=== PATIENT | male | born 1955 | race Caucasian/White ===

== ENCOUNTER 2018-02-14 06:26 | Emergency (ER) | payer BC ==
[2018-02-14] MEDS ORDERED: ONDANSETRON HCL INJ/PF 4 MG/2 ML SDV ONE (06:51)
[2018-02-14] MEDS ORDERED: ONDANSETRON HCL INJ/PF 4 MG/2 ML SDV IV ONE (06:51)
[2018-02-14] MEDS ORDERED: NORMAL SALINE 1000 ML 1,000 ML IV ONE (06:52)
[2018-02-14] MEDS ORDERED: MORPHINE SULFATE 10 MG/ML INJ IV ONE (07:03)
[2018-02-14 07:08] LABS: ABSOLUTE BASOPHILS # (AUTO) 0.1 10^3/uL (0.0-0.2); ABSOLUTE MONOCYTES (AUTO) 0.4 10^3/uL (0.1-1.4); BASOPHILS % (AUTO) 0.6 % (0-2); EOSINOPHILS % (AUTO) 0.3 % (0-6); HEMATOCRIT 42.8 % (37.9-51.0); HEMOGLOBIN 14.8 g/dL (13.5-17.0); LYMPHOCYTES % (AUTO) 9.4 % (13-45); MEAN CORPUSCULAR HEMOGLOBIN 30.8 pg (27.0-33.4); MEAN CORPUSCULAR HGB CONC 34.6 g/dL (32.0-36.0); MEAN CORPUSCULAR VOLUME 89 fl (80-97); MONOCYTES % (AUTO) 3.9 % (3-13); PLATELET COUNT 280 10^3/uL (150-450); RED BLOOD COUNT 4.81 10^6/uL (4.35-5.55); SEGMENTED NEUTROPHILS % (AUTO) 85.8 % (42-78); TOTAL CELLS COUNTED % (AUTO) 100 %; WHITE BLOOD COUNT 10.4 10^3/uL (4.0-10.5)
[2018-02-14 07:18] LABS: APPEARANCE,URINE CLOUDY; BILIRUBIN,URINE NEGATIVE (NEGATIVE); COLOR,URINE YELLOW; GLUCOSE, URINE NEGATIVE (NEGATIVE); KETONES,URINE NEGATIVE (NEGATIVE); LEUKOCYTE ESTERASE,URINE TRACE (NEGATIVE); NITRITE,URINE NEGATIVE (NEGATIVE); PROTEIN,URINE 30 mg/dL (NEGATIVE); URINE SPECIFIC GRAVITY 1.024; UROBILINOGEN,URINE NEGATIVE mg/dL (<2.0)
--- NOTE | 2018-02-14 07:19 | ER Document Report ---
ED General - General Chief Complaint: Back Pain Stated Complaint: FLANK PAIN Time Seen by Provider: 02/14/18 07:02 Mode of Arrival: Ambulatory Information source: Patient Notes: Patient presents complaining of left flank pain for the past 4 days. Patient states he has had some dark urine. Patient denies any fever. Patient does have a history of previous kidney stone but it has been over 10 years since the last time he had a kidney stone. Patient does report nausea and vomiting times multiple episodes today. Patient was given pain medication prior to providers evaluation. Patient now states that pain is markedly improved. Patient complains of left-sided abdominal and left flank pain. TRAVEL OUTSIDE OF THE [place] IN LAST 30 DAYS: No - HPI Onset: Other - 4 days Onset/Duration: Worse Quality of pain: Sharp Pain Level: 4 Associated symptoms: Nausea, Vomiting, Other - Left flank pain. denies: Fever, Sweating Exacerbated by: denies: Denies Relieved by: Denies Similar symptoms previously: Yes - Kidney stones Recently seen / treated by doctor: No - Related Data Allergies/Adverse Reactions: No Known Allergies Allergy (Unverified 02/14/18 06:30) Past Medical History - General Information source: Patient - Social History Smoking Status: Never Smoker Frequency of alcohol use: Occasional Drug Abuse: None Occupation: [employer] Lives with: Spouse/Significant other Family History: Reviewed & Not Pertinent - Past Medical History Cardiac Medical History: Reports: Hx Hypertension Renal/ Medical History: Reports: Hx Benign Prostatic Hyperplasia, Hx Kidney Stones GI Medical History: Reports: Hx Gastroesophageal Reflux Disease Psychiatric Medical History: Reports: Hx Depression Review of Systems - Review of Systems Constitutional: No symptoms reported. denies: Fever, Recent illness EENT: No symptoms reported Cardiovascular: No symptoms reported. denies: Chest pain Respiratory: No symptoms reported Gastrointestinal: Abdominal pain, Nausea, Vomiting. denies: Diarrhea Genitourinary: Flank pain, Hematuria. denies: Dysuria Male Genitourinary: No symptoms reported Musculoskeletal: Back pain Skin: No symptoms reported Hematologic/Lymphatic: No symptoms reported Neurological/Psychological: No symptoms reported Physical Exam - Vital signs Vitals: Temp Pulse Resp BP Pulse Ox 97.5 F 83 18 119/82 100 02/14/18 06:32 02/14/18 06:32 02/14/18 06:32 02/14/18 06:32 02/14/18 06:32 - General General appearance: Appears well, Alert In distress: None - Respiratory Respiratory status: No respiratory distress Chest status: Nontender Breath sounds: Normal Chest palpation: Normal - Cardiovascular Rhythm: Regular Heart sounds: S1 appreciated, S2 appreciated Murmur: No - Abdominal Inspection: Normal Distension: No distension Bowel sounds: Normal Tenderness: Tender - mild L side abd Organomegaly: No organomegaly - Back Back: CVA tenderness - left - Extremities General upper extremity: Normal inspection, Normal ROM General lower extremity: Normal inspection, Normal ROM - Neurological Neuro grossly intact: Yes Cognition: Normal Klemme Coma Scale Eye Opening: Spontaneous Twyla Coma Scale Verbal: Oriented Twyla Coma Scale Motor: Obeys Commands Twyla Coma Scale Total: 15 - Psychological Associated symptoms: Normal affect, Normal mood - Skin Skin Temperature: Warm Skin Moisture: Dry Skin Color: Normal Course - Re-evaluation Re-evalutation: 02/14/18 08:30 Patient much more comfortable at this time. Patient's pain able to be managed. Patient with a 4 mm stone to the left ureter. Consulted with Dr. Madrid regarding patient presentation and diagnostic evaluation. Recommends placing patient on Cipro culturing the urine and encouraging outpatient follow-up with urology. No concern for sepsis at this time. Patient was given IV fluids for hydration as his laboratory tests reflect mild dehydration. - Vital Signs Vital signs: Temp Pulse Resp BP Pulse Ox 97.8 F 71 18 100/57 L 100 02/14/18 09:01 02/14/18 09:01 02/14/18 09:01 02/14/18 09:01 02/14/18 09:01 - Laboratory Result Diagrams: 02/14/18 06:45 02/14/18 06:45 Laboratory results interpreted by me: 02/14/18 02/14/18 02/14/18 06:45 06:45 06:45 Seg Neutrophils % 85.8 H Lymphocytes % 9.4 L Absolute Neutrophils 9.0 H Chloride 110 H BUN 25 H Creatinine 1.73 H Est GFR ( Amer) 49 L Est GFR (Non-Af Amer) 40 L Glucose 137 H Urine Protein 30 H Urine Blood LARGE H Ur Leukocyte Esterase TRACE H 02/14/18 08:31 Labs- Entire Visit 02/14/18 02/14/18 02/14/18 06:45 06:45 06:45 WBC 10.4 RBC 4.81 Hgb 14.8 Hct 42.8 MCV 89 MCH 30.8 MCHC 34.6 RDW 14.0 Plt Count 280 Seg Neutrophils % 85.8 H Lymphocytes % 9.4 L Monocytes % 3.9 Eosinophils % 0.3 Basophils % 0.6 Absolute Neutrophils 9.0 H Absolute Lymphocytes 1.0 Absolute Monocytes 0.4 Absolute Eosinophils 0.0 Absolute Basophils 0.1 Sodium 141.9 Potassium 4.5 Chloride 110 H Carbon Dioxide 23 Anion Gap 9 BUN 25 H Creatinine 1.73 H Est GFR ( Amer) 49 L Est GFR (Non-Af Amer) 40 L Glucose 137 H Calcium 9.6 Total Bilirubin 1.0 Direct Bilirubin 0.4 Neonat Total Bilirubin Not Reportable Neonat Direct Bilirubin Not Reportable Neonat Indirect Bili Not Reportable AST 20 ALT 30 Alkaline Phosphatase 82 Total Protein 7.0 Albumin 4.1 Urine Color YELLOW Urine Appearance CLOUDY Urine pH 5.0 Ur Specific [place] 1.024 Urine Protein 30 H Urine Glucose (UA) NEGATIVE Urine Ketones NEGATIVE Urine Blood LARGE H Urine Nitrite NEGATIVE Urine Bilirubin NEGATIVE Urine Urobilinogen NEGATIVE Ur Leukocyte Esterase TRACE H Urine WBC (Auto) 45 Urine RBC (Auto) >182 Squamous Epi Cells Auto 2 Urine Mucus (Auto) OCC Urine Ascorbic Acid NEGATIVE - Diagnostic Test Radiology reviewed: Reports reviewed Discharge - Discharge Clinical Impression: Left ureteral stone Condition: Stable Disposition: HOME, SELF-CARE Additional Instructions: Return immediately for any new or worsening symptoms Followup with your primary care provider, call tomorrow to make a followup appointment Follow-up with urology, call today to make a follow-up appointment Increase oral fluids and stay well-hydrated Urine culture is pending, we will call if you need any different treatment KIDNEY STONE: You are passing or have passed a kidney stone. These stones are usually due to increased calcium or uric acid concentrations in your urine. Stones within the kidney itself are not painful. The pain occurs as the stone leaves the kidney to pass down the long tube, called the ureter, leading to the bladder. If the stone is small, it will usually pass by itself. Most patients can pass the stone at home. You will usually receive medications for pain, nausea or vomiting, and sometimes a medication to assist in passing the kidney stone. However, if the pain is very severe or if vomiting prevents you from taking oral pain medications, you may need to return for further treatment. Drink three or four quarts of fluids per day. You will be given pain medication (if needed) and urine strainers. Strain all your urine to see if the stone passes. If your doctor has asked you to bring the stone in for analysis, return with the stone once it has passed. Return if pain or vomiting become severe, if you develop a high fever, if you are unable to pass your urine, or if other unusual symptoms occur. PAIN MEDICATION INJECTION: You have received an injection of a pain medication. You should experience significant pain relief within 45 minutes. This drug is a narcotic - - it will impair your judgement, slow your reaction time and make you sleepy ( as well as relieve your pain). Narcotics also can cause nausea. You should not drive, work with machinery, or perform any task requiring mental alertness until all effects of the medication are gone -- six to eight hours. Do not take any alcohol, or sedatives, and do not take any other medication without checking with your physician. ANTINAUSEA MEDICATION: You have been given a medication to suppress nausea and vomiting. This type of medication can be given as a shot, pill, or suppository. It will usually last for many hours. Pills and shots usually last six to eight hours, suppositories last about 12 hours. For the typical illness, only one or two doses of the medication may be necessary. Mild lightheadedness may occur. This type of medicine can cause drowsiness. Do not drive or operate dangerous machinery while under its influence. Do not mix with alcohol. See your doctor at once if you have muscle spasms or tightness, or uncontrollable motions (particularly of the neck, mouth, or jaw). Persistent vomiting or severe lightheadedness should also be evaluated by the physician. ORAL NARCOTIC MEDICATION: You have been given a prescription for pain control. This medication is a narcotic. It's best taken with food, as nausea can result if taken on an empty stomach. Don't operate machinery or drive within six hours of taking this medication. Do not combine this medicine with alcohol, or with any medication which can cause sedation (such as cold tablets or sleeping pills) unless you get permission from the physician. Narcotics tend to cause constipation. If possible, drink plenty of fluids and eat a diet high in fiber and fruits. Please be aware that prescription narcotics also have the potential for abuse. People become addicted to these medications because of the general sense of wellbeing that they induce. This feeling along with a significant reduction in tension, anxiety, and aggression provides a stimulating seductive quality to these drugs. Once your pain is under control, we encourage you to discard your unused narcotics. FLOMAX (tamsulosin): Flomax is a medicine that shrinks the prostate gland. It helps relieve symptoms of benign prostatic hypertrophy, such as frequent urination, weak stream, and inadequate emptying. It has been shown to dilate the ureter (tube leading from the kidney to the bladder) and help in passing kidney stones Flomax usually causes no side effects. You may notice slight tiredness and dizziness for a few days. Some patients develop nasal congestion. Rarely, impotence can occur. If the symptoms are bothersome and don't improve with continued use, call your doctor. Contact your doctor or return if you have fainting spells, severe weakness or dizziness, shortness of breath, or rash. FOLLOW-UP CARE: If you have been referred to a physician for follow-up care, call the physician s office for an appointment as you were instructed or within the next two days. If you experience worsening or a significant change in your symptoms, notify the physician immediately or return to the Emergency Department at any time for re-evaluation. Prescriptions: Ciprofloxacin HCl [Cipro 500 mg Tablet] 500 mg PO BID #20 tablet Ondansetron HCl [Zofran 4 mg Tablet] 1 tab PO Q6 PRN #8 tablet PRN Reason: Oxycodone HCl/Acetaminophen [Percocet 5-325 mg Tablet] 1 tab PO ASDIR PRN #15 tablet PRN Reason: Tamsulosin HCl [Flomax 0.4 mg Cap.sr] 0.4 mg PO DAILY #7 cap.sr.24h Referrals: RAJWINDER HUERTA MD [TAMAR LEROY] - Follow up tomorrow
[2018-02-14 07:24] LABS: ALANINE AMINOTRANSFERASE 30 U/L (21-72); ALBUMIN 4.1 g/dL (3.5-5.0); ALKALINE PHOSPHATASE 82 U/L (38-126); ANION GAP 9 (5-19); ASPARTATE AMINO TRANSFERASE 20 U/L (17-59); BILIRUBIN,DIRECT 0.4 mg/dL (0.0-0.4); BLOOD UREA NITROGEN 25 mg/dL (7-20); CALCIUM 9.6 mg/dL (8.4-10.2); CARBON DIOXIDE 23 mmol/L (22-30); CHLORIDE 110 mmol/L (98-107); GLUCOSE 137 mg/dL (75-110); POTASSIUM 4.5 mmol/L (3.6-5.0); SODIUM 141.9 mmol/L (137-145)
--- NOTE | 2018-02-14 07:50 | RADIOLOGY REPORT (SQ) ---
EXAM DESCRIPTION: CT ABDOMEN WITHOUT IV CONTRAST COMPLETED DATE/TME: 02/14/2018 07:18 CLINICAL HISTORY: left flank pain COMPARISON: None Available. TECHNIQUE: CT of the abdomen and pelvis without IV contrast. Evaluation of the solid organs and vasculature is suboptimal due to lack of IV contrast. DLP: 435.58 mGy-cm FINDINGS: Lung Bases: The visualized lung bases are clear. Bones: No destructive bone lesions identified. Age-indeterminate compression deformity L2 vertebral body with approximately 30% loss of anterior vertebral body height. Abdomen: Liver: The liver has normal size and density. Gallbladder: No calcified gallstones. Spleen, Pancreas, and Adrenal Glands: The spleen, pancreas, and adrenal glands are unremarkable. Kidneys: The right hydronephrosis. Mild left hydroureter and hydronephrosis with left perinephric fluid. There is a 0.4 cm obstructing calculus in the mid left ureter. Vasculature: The aorta and IVC have normal caliber and position. Stomach: The stomach and duodenum have normal course. Other: No free intraperitoneal air. No free fluid or lymphadenopathy. Pelvis: Bladder: Urinary bladder is unremarkable. Bowel: Scattered diverticula of the colon. No pericolic inflammatory change. No dilated loops of large or small bowel. Appendix: Normal appendix. Pelvis: Prostate is not enlarged. IMPRESSION: 1. There is a 0.4 cm obstructing calculus in the mid left ureter producing mild left hydroureter and hydronephrosis. 2. Diverticulosis without evidence of acute diverticulitis. This exam was performed according to our departmental dose-optimization program, which includes automated exposure control, adjustment of the mA and/or kV according to patient size and/or use of iterative reconstruction technique.
[2018-02-14] MEDS ORDERED: CIPROFLOXACIN HCL 500 MG TABLET PO ONE (08:29)
[2018-02-14] MEDS ORDERED: TAMSULOSIN HCL 0.4 MG CAP.SR.24H PO ONE (08:29)
[2018-02-14 09:02] VITALS: BP 100/57
== END 2018-02-14 09:05 | disposition home or self-care (01) ==
LOC: ER 06:26
DX: N20.1 Calculus of ureter (principal); M54.9 Dorsalgia, unspecified; R10.9 Unspecified abdominal pain; R39.198 Other difficulties with micturition; R11.2 Nausea with vomiting, unspecified; I10 Essential (primary) hypertension
CPT/HCPCS: 99284; 96361; 96374; 96375; 36415; 87086; 85025; 80053; 81001; 76380; J2270; J2405

== ENCOUNTER 2018-02-17 01:21 | Emergency (ER) | payer BC ==
[2018-02-17] MEDS ORDERED: OXYCODONE-ACETAMINOPHEN 5-325 MG TABLET PO ONE (04:05)
[2018-02-17] MEDS ORDERED: ONDANSETRON 4 MG TAB.RAPDIS PO ONE (04:05)
[2018-02-17] MEDS ORDERED: MORPHINE SULFATE IR 15 MG TABLET PO ONE (04:22)
[2018-02-17 06:43] LABS: ABSOLUTE BASOPHILS # (AUTO) 0.1 10^3/uL (0.0-0.2); ABSOLUTE LYMPHOCYTES (AUTO) 0.9 10^3/uL (0.5-4.7); ABSOLUTE MONOCYTES (AUTO) 0.8 10^3/uL (0.1-1.4); ABSOLUTE NEUT (AUTO) 9.8 10^3/uL (1.7-8.2); BASOPHILS % (AUTO) 0.5 % (0-2); EOSINOPHILS % (AUTO) 0.1 % (0-6); HEMATOCRIT 42.1 % (37.9-51.0); HEMOGLOBIN 14.6 g/dL (13.5-17.0); LYMPHOCYTES % (AUTO) 7.8 % (13-45); MEAN CORPUSCULAR HEMOGLOBIN 31.1 pg (27.0-33.4); MEAN CORPUSCULAR HGB CONC 34.8 g/dL (32.0-36.0); MEAN CORPUSCULAR VOLUME 89 fl (80-97); MONOCYTES % (AUTO) 6.9 % (3-13); PLATELET COUNT 265 10^3/uL (150-450); RED BLOOD COUNT 4.71 10^6/uL (4.35-5.55); RED CELL DISTRIBUTION WIDTH 13.6 % (11.5-14.0); SEGMENTED NEUTROPHILS % (AUTO) 84.7 % (42-78); TOTAL CELLS COUNTED % (AUTO) 100 %; WHITE BLOOD COUNT 11.6 10^3/uL (4.0-10.5)
[2018-02-17 07:19] LABS: APPEARANCE,URINE CLOUDY; BILIRUBIN,URINE NEGATIVE (NEGATIVE); CALCIUM OXALATE CRYSTALS,URINE RARE /HPF; COLOR,URINE AMBER; GLUCOSE, URINE NEGATIVE (NEGATIVE); KETONES,URINE TRACE mg/dL (NEGATIVE); LEUKOCYTE ESTERASE,URINE NEGATIVE (NEGATIVE); NITRITE,URINE NEGATIVE (NEGATIVE); PROTEIN,URINE 30 mg/dL (NEGATIVE); URINE SPECIFIC GRAVITY 1.029; UROBILINOGEN,URINE NEGATIVE mg/dL (<2.0)
[2018-02-17 07:21] LABS: ALANINE AMINOTRANSFERASE 26 U/L (21-72); ALBUMIN 3.9 g/dL (3.5-5.0); ANION GAP 9 (5-19); ASPARTATE AMINO TRANSFERASE 17 U/L (17-59); BILIRUBIN,DIRECT 0.5 mg/dL (0.0-0.4); BILIRUBIN,TOTAL 1.6 mg/dL (0.2-1.3); BLOOD UREA NITROGEN 21 mg/dL (7-20); CALCIUM 9.3 mg/dL (8.4-10.2); CARBON DIOXIDE 24 mmol/L (22-30); CHLORIDE 107 mmol/L (98-107); GLUCOSE 114 mg/dL (75-110); LIPASE 37.3 U/L (23-300); POTASSIUM 4.7 mmol/L (3.6-5.0); SODIUM 139.8 mmol/L (137-145); TOTAL PROTEIN 6.9 g/dL (6.3-8.2)
[2018-02-17] MEDS ORDERED: KETOROLAC TROMETHAMINE INJ/PF 30 MG/1 ML SDV IV ONE (07:39)
[2018-02-17] MEDS ORDERED: MORPHINE SULFATE 10 MG/ML INJ IV ONE ×2 (07:39→07:41)
[2018-02-17 07:44] LABS: ALKALINE PHOSPHATASE 75 U/L (38-126)
--- NOTE | 2018-02-17 08:45 | ER Document Report ---
ED GI/ - General Mode of Arrival: Ambulatory Information source: Patient TRAVEL OUTSIDE OF THE [place] IN LAST 30 DAYS: No <LISA JUAREZ - Last Filed: 02/17/18 11:35> <KRITSAN ALFONSO - Last Filed: 02/17/18 11:40> - General Chief Complaint: Flank Pain Stated Complaint: FLANK PAIN Time Seen by Provider: 02/17/18 07:33 Notes: 62-year-old male who presents to the emergency department today with complaints of left sided flank pain for the last 3 days. On February 14 the patient was seen here in this emergency department and was diagnosed with a left ureteral stone and was sent home on Percocet, Cipro, Zofran, and Flomax. Patient states that his pain has continued pretty consistently throughout those few days and Percocet was not helping his pain. Patient states his last dosage of Percocet was taken last night at approximately 2100. Patient states he stopped taking it because it was not working and he was beginning to feel constipated. (LISA JUAREZ) - Related Data Allergies/Adverse Reactions: No Known Allergies Allergy (Unverified 02/14/18 06:30) Past Medical History - General Information source: Patient - Social History Smoking Status: Unknown if Ever Smoked Frequency of alcohol use: None Drug Abuse: None Family History: Reviewed & Not Pertinent Patient has suicidal ideation: No Patient has homicidal ideation: No - Past Medical History Cardiac Medical History: Reports: Hx Hypertension EENT Medical History: Reports: Eyes - Glaucoma Renal/ Medical History: Reports: Hx Benign Prostatic Hyperplasia, Hx Kidney Stones GI Medical History: Reports: Hx Gastroesophageal Reflux Disease Psychiatric Medical History: Reports: Hx Depression Traumatic Medical History: Reports: Hx Spine Fracture Past Surgical History: Reports: Other - Herniated Disc surgery <LISA JUAREZ - Last Filed: 02/17/18 11:35> Review of Systems - Review of Systems Constitutional: No symptoms reported EENT: No symptoms reported Cardiovascular: No symptoms reported Respiratory: No symptoms reported Gastrointestinal: No symptoms reported Genitourinary: See HPI, Flank pain - left Male Genitourinary: No symptoms reported Musculoskeletal: No symptoms reported Skin: No symptoms reported Hematologic/Lymphatic: No symptoms reported Neurological/Psychological: No symptoms reported -: Yes All other systems reviewed and negative <LISA JUAREZ - Last Filed: 02/17/18 11:35> Physical Exam <LISA JUAREZ - Last Filed: 02/17/18 11:35> <KRISTAN ALFONSO - Last Filed: 02/17/18 11:40> - Vital signs Vitals: Temp Pulse Resp BP Pulse Ox 97.5 F 64 16 111/85 98 02/17/18 01:43 02/17/18 01:43 02/17/18 01:43 02/17/18 01:43 02/17/18 01:43 - Notes Notes: Physical Exam: General: Alert, appears to be in moderate to severe pain, kneeling down on bed with knees and elbows rocking back and forth upon entry into room. HEENT: Normocephalic. Atraumatic. PERRL. Extraocular movements intact. Oropharynx clear. Neck: Supple. Non-tender. Respiratory: No respiratory distress. Clear and equal breath sounds bilaterally. Cardiovascular: Regular rate and rhythm. Abdominal: LLQ tenderness with palpation. No distension. Normal Bowel Sounds. Back: Left CVA tenderness to percussion. No deformity or step off. Extremities: Moves all four extremities. Upper extremities: Normal inspection. Normal ROM. Lower extremities: Normal inspection. No edema. Normal ROM. Neurological: Normal cognition. AAOx4. Normal speech. Psychological: Normal affect. Normal Mood. Skin: Warm. Dry. Normal color. (LISA JUAREZ) Course - Laboratory Result Diagrams: 02/17/18 06:30 02/17/18 06:30 <LISA JUAREZ - Last Filed: 02/17/18 11:35> - Laboratory Result Diagrams: 02/17/18 06:30 02/17/18 06:30 <KRISTAN ALFONSO - Last Filed: 02/17/18 11:40> - Re-evaluation Re-evalutation: 02/17/18 09:35 Patient is sleeping soundly at this time. 02/17/18 11:26 I visited with the patient again, he continues to remain pain-free and is agreeable with possibly trying a different pain medication. He was not taking anything to prevent constipation so I am recommending he take MiraLAX on a daily basis and drink plenty of fluids. (KRISTAN ALFONSO) - Vital Signs Vital signs: Temp Pulse Resp BP Pulse Ox 97.8 F 62 20 121/75 99 02/17/18 08:05 02/17/18 08:05 02/17/18 08:05 02/17/18 08:05 02/17/18 08:05 - Laboratory Laboratory results interpreted by me: 02/17/18 02/17/18 02/17/18 06:30 06:30 07:00 WBC 11.6 H Seg Neutrophils % 84.7 H Lymphocytes % 7.8 L Absolute Neutrophils 9.8 H BUN 21 H Creatinine 1.74 H Est GFR ( Amer) 48 L Est GFR (Non-Af Amer) 40 L Glucose 114 H Total Bilirubin 1.6 H Direct Bilirubin 0.5 H Urine Protein 30 H Urine Ketones TRACE H Urine Blood LARGE H Discharge <LISA JUAREZ - Last Filed: 02/17/18 11:35> <KRISTAN ALFONSO - Last Filed: 02/17/18 11:40> - Discharge Clinical Impression: Renal colic on left side, Renal insufficiency, Yeast UTI Condition: Stable Disposition: HOME, SELF-CARE Additional Instructions: Kidney Stone: You are trying to pass a kidney stone. These stones are usually due to increased calcium or uric acid concentrations in your urine. Stones within the kidney itself are not painful. The pain occurs as the stone leaves the kidney to pass down the long tube, called the ureter, leading to the bladder. If the stone is small, it will usually pass by itself. Most patients can pass the stone at home. You will usually receive medications for pain, nausea or vomiting, and sometimes a medication to assist in passing the kidney stone. However, if the pain is very severe or if vomiting prevents you from taking oral pain medications, you may need to return for further treatment. Drink three or four quarts of fluids per day. You will be given pain medication (if needed) and urine strainers. Strain all your urine to see if the stone passes. If your doctor has asked you to bring the stone in for analysis, return with the stone once it has passed. Return if pain or vomiting become severe, if you develop a high fever, if you are unable to pass your urine, or if other unusual symptoms occur. The urinalysis done today did show some yeast so he will be prescribed Diflucan for 3 days. You will be prescribed a different pain medication called Dilaudid to control your pain. Be sure to drink plenty of fluids every day throughout the day in the evening. Take MiraLAX once daily to help prevent constipation. Drink a bottle of magnesium citrate if you feel you are becoming constipated. Follow-up this week with [facility], call the office Sunday. RETURN TO THE EMERGENCY ROOM IF ANY NEW OR WORSENING SYMPTOMS. Prescriptions: Fluconazole [Diflucan 100 Mg Tablet] 100 mg PO DAILY #3 tablet Hydromorphone HCl [Dilaudid 2 mg Tablet] 2 mg PO ASDIR PRN #20 tablet PRN Reason: For Pain Referrals: [facility] [Provider Group] - Follow up as needed [facility] [Provider Group] - Follow up as needed Scribe Attestation: 02/17/18 11:33 I personally performed the services described in the documentation, reviewed and edited the documentation which was dictated to the scribe in my presence, and it accurately records my words and actions. (KRISTAN ALFONSO) Scribe Documentation - Scribe Written by Scribe:: Mabel Smalls, 02/17/2018 [id number] acting as scribe for :: [facility] <LISA JUAREZ - Last Filed: 02/17/18 11:35>
[2018-02-17 11:59] VITALS: BP 126/80
== END 2018-02-17 11:59 | disposition home or self-care (01) ==
LOC: ER 01:21
DX: N20.1 Calculus of ureter (principal); B37.49 Other urogenital candidiasis; N28.9 Disorder of kidney and ureter, unspecified; I10 Essential (primary) hypertension
CPT/HCPCS: 99284; 96374; 96375; 36415; 83690; 85025; 80053; 81001; S0119; J1885; J2270